=== PATIENT | female | born 1930 | race Caucasian/White ===

== ENCOUNTER → 2016-06-09 | Outpatient (CLI) | payer MEDICARE, BC ==
[~2016-06-09] MED LIST: ALDACTONE25 MG PO; BUMEX1 MG PO; CALCIUM 600 +1 EAC6 PO; COLACE100 MG PO; COZAAR25 MG PO; DOXYCYCLINE HY100 MG PO; ENTRESTO 24 MG1 EACH PO; FISH OIL 1,0001 EACH PO; HALDOL PO; HYOSCYAMINE0.125 M1; KEFLEX500 MG PO; KLOR-CON M2020 MEQ PO; LASIX40 MG PO; LEVOTHROID (SY25 MCG PO; MAG-OX-400(241400 MG PO; MAGOX 400400 MG PO; METOCLOPRAMIDE H5 MG PO; MORPHINE S20 MG/5 ML PO; MULTIVITAMINS1 EAC1 PO; MYCOSTATIN OINT30 GM TOP; NIACIN FLUSH F400 MG PO; NORCO 10-325 T1 EACH PO; OXYGEN M-15 INH; PRADAXA75 MG PO; PROLIA60 MG/ML SUB-Q; SOOTHE LUBRICA1 EACH OPHTH; TYLENOL EXTRA500 MG PO; TYLENOL/COD#31 TAB PO; ULTRAM50 MG PO; VERAPAMIL ER120 M1 PO; VITAMIN D1000 UNIT PO
== END | disposition disaster alternative care site (69) ==
LOC: GRAD 08:10
DX: C56.2 Malignant neoplasm of left ovary (principal); C78.2 Secondary malignant neoplasm of pleura; C78.7 Secondary malignant neoplasm of liver and intrahepatic bile duct; C78.6 Secondary malignant neoplasm of retroperitoneum and peritoneum; D64.81 Anemia due to antineoplastic chemotherapy; K76.89 Other specified diseases of liver; I70.90 Unspecified atherosclerosis; I51.7 Cardiomegaly; R14.0 Abdominal distension (gaseous); R35.0 Frequency of micturition; R91.8 Other nonspecific abnormal finding of lung field

== ENCOUNTER 2016-06-26 09:14 | Emergency (ER) | payer MEDICARE, BC ==
--- NOTE | ~2016-06-26 | ER ---
PATIENT'S NAME: VENITA CLARKMA Delvis [facility] AGE: 85 Y [address] ROOM: [place] [address] LOCATION: [facility] ADMIT DATE: 06/26/2016 ER/Outpatient Report DISCHARGE DATE: 06/26/2016 FAMILY PHYSICIAN: Eugenio Lemons MD ATTENDING PHYSICIAN: Gus Luna TIME OF ARRIVAL: 0925 hours. TIME OF EVALUATION: 0925 hours. CHIEF COMPLAINT: Rectal bleeding. HISTORY OF PRESENT ILLNESS: The patient is an 85-year-old female who presents to the emergency department today with a chief complaint of rectal bleeding. She reports this started 45 minutes prior to arrival. 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 She reports that she denies any fevers or chills. No urinary frequency or painful urination. She does report that she has issues with incomplete emptying. She feels like it times recently. Did have some diarrhea a few weeks ago, but none currently. Denies any nausea or vomiting. Denies any abdominal pain. Has 0/10 pain. PAST MEDICAL HISTORY: Congestive heart failure, chronic back pain, ovarian cancer with metastasis, coronary artery disease, atrial fibrillation, and hypertension. PAST SURGICAL HISTORY: Pacemaker, port placement, hip. SOCIAL HISTORY: The patient denies any tobacco, alcohol, or illicit drug use. ALLERGIES: TO PERCOCET WHICH MAKES HER CRAZY. MEDICATIONS: Please see list. PRIMARY CARE DOCTOR: Eugenio Lemons MD. HEM/ONC: [facility] 85 [facility] [address] ROOM: [place] [id number] LOCATION: ED ADMIT DATE: 06/26/2016 ER/Outpatient Report DISCHARGE DATE: 06/26/2016 FAMILY PHYSICIAN: Eugenio Lemons MD ATTENDING PHYSICIAN: Gus Luna MD. REVIEW OF SYSTEMS: All systems are reviewed by myself and are negative with the exception of those discussed in HPI and past medical history. PHYSICAL EXAMINATION: VITAL SIGNS: Weight 73.9 kg, blood pressure 127/66, pulse is 70, respiratory rate 18, temperature 98.2, oxygen saturation 97% on room air. GENERAL: The patient is an 85-year-old female, appears stated age, in no acute distress at this time. HEENT: Head normocephalic, atraumatic. Pupils are equal, round, and reactive to light. Conjunctivae are normal. NECK: Supple. There is no nuchal rigidity. CARDIOVASCULAR: Regular rate and rhythm. Positive murmur. No rubs or gallops. LUNGS: Clear to auscultation bilaterally. No wheezes, rales, or rhonchi. ABDOMEN: Soft, nontender, and nondistended. No rebound, rigidity, or guarding. Positive bowel sounds. MUSCULOSKELETAL: The patient ambulates in the room. Moves all 4 extremities. SKIN: Warm and dry. There are rashes or lesions noted. RECTAL: The patient's rectal exam is performed. She does have a mild amount of bright red blood. There is no active bleeding noted. LABS AND X-RAYS: Labs and x-rays are obtained. The CBC is normal. Lactate is 1.9. CMP is unremarkable except for BUN 25. LFTs normal. CK is normal. CK-MB is normal. Troponin is less than 0.04. ProBNP is 1108. Procalcitonin was less than 0.05. Occult blood is positive. Urinalysis shows 50 leuk esterase, full field wbc's, few bacteria, 15 protein, [address] scan of the abdomen and pelvis is obtained. I have discussed results with the radiologist. It shows a slightly more free fluid than 2 weeks ago. There is stable metastasis noted. There is diverticulum without evidence of diverticulitis. IMPRESSION: 1. Bright red blood per rectum. Rectal bleeding stable. 2. Ovarian cancer with metastasis including bowel involvement. 3. Initial visit. EMERGENCY DEPARTMENT COURSE: The patient brought back to the examination room. Seen and evaluated by myself. An IV is established. Laboratory analysis and imaging are obtained as described above. I have discussed results with the patient and family who is at the bedside. The patient reports she feels fine. I attempted to contact Dr. Lemons who is unavailable at this time. I have contacted . PATIENT'S NAME: JACINTO CLARK [facility] AGE: 85 Y [address] ROOM: [place] [address] LOCATION: [facility] ADMIT DATE: 06/26/2016 ER/Outpatient Report DISCHARGE DATE: 06/26/2016 FAMILY PHYSICIAN: Eugenio Lemons MD ATTENDING PHYSICIAN: Gus Luna who is on-call for Dr. Lemons and we have discussed the case. The patient would like to go home at this time. She has not had any chest pain, shortness of breath. No weakness, no lightheadedness. The bleeding is minimal at this time. I have discussed this with Dr. Rueda. We will plan for followup with Dr. eLmons tomorrow at 10:45, picking up a discussion about the potential colonoscopy for further evaluation, if the patient so chooses. I have discussed return to care instructions including worsening symptoms or any other concerns to return to the emergency department as soon as possible. The patient is agreeable. Family is agreeable. They are without further questions at this time. I was able to later talk with Dr. Lemons and discussed the case with him. He will see the patient tomorrow as scheduled. DISPOSITION: The patient discharged home in good condition. DO EARL FELIX/modl /[id number] d: 06/26/16 1707 t: 06/27/16 1024, OUTPATIENT REPORT
[~2016-06-26 09:14] MED LIST changes: -ALDACTONE25 MG PO; -BUMEX1 MG PO; -ENTRESTO 24 MG1 EACH PO; -HALDOL PO; -HYOSCYAMINE0.125 M1; -KEFLEX500 MG PO; -KLOR-CON M2020 MEQ PO; -MAG-OX-400(241400 MG PO; -MAGOX 400400 MG PO; -METOCLOPRAMIDE H5 MG PO; -MORPHINE S20 MG/5 ML PO; -MYCOSTATIN OINT30 GM TOP; -NORCO 10-325 T1 EACH PO; -OXYGEN M-15 INH; -PROLIA60 MG/ML SUB-Q; -ULTRAM50 MG PO
[2016-06-26 10:00] LABS: BASOPHIL # 0.1 K/uL (0.0-0.2); BASOPHIL % 1.3 %; EOSINOPHIL # 0.5 K/uL (0.0-0.5); EOSINOPHIL % 8.1 %; HEMATOCRIT 36.2 % (30.0-46.0); HEMOGLOBIN 12.1 g/dL (10.0-15.0); IMMATURE GRANULOCYTE % 0.3 %; LYMPHOCYTE # 1.3 K/uL (0.8-4.0); LYMPHOCYTE % 20.4 %; MCH 31.3 pg (27.0-34.0); MCHC 33.4 gm/dL (32.0-36.5); MCV 93.8 fl (83.0-98.0); MONOCYTE # 0.6 K/uL (0.0-1.0); MONOCYTE % 9.6 %; MPV 9.7 fl (9.4-12.4); NEUTROPHIL # (ANC) 3.7 K/uL (1.8-7.8); NEUTROPHIL % 60.3 %; NRBC % 0 /100WBC (0-0.00); PLATELET COUNT 250 K/uL (150-450); RBC 3.86 M/uL (3.00-5.00); RDW-CV 13.9 % (11.9-14.6); WBC 6.2 K/uL (4.0-11.0)
[2016-06-26 10:26] LABS: ALBUMIN 3.3 gm/dL (3.5-5.0); ALK PHOS 89 IU/L (33-138); ALT 18 IU/L (12-78); ANION GAP 14.4 (10.0-19.0); AST 35 IU/L (10-40); BLOOD UREA NITROGEN 25 mg/dL (6-24); CALCIUM 8.9 mg/dL (8.5-10.5); CHLORIDE 101 mMol/L (96-110); CO2 27 mMol/L (22-32); CPK 94 IU/L (21-215); CREATININE 0.9 mg/dL (0.5-1.1); ESTIMATED GFR (MDRD EQUATION) 59; POTASSIUM 4.4 mMol/L (3.7-5.1); SODIUM 138 mMol/L (135-145); TOTAL BILIRUBIN 0.5 mg/dL (0.0-1.5)
[2016-06-26 11:20] LABS: BILIRUBIN URINE NEGATIVE (NEGATIVE); BLOOD URINE 10 /UL (NEGATIVE); COLOR URINE YELLOW (YELLOW); GLUCOSE URINE NEGATIVE (NEGATIVE); KETONE URINE NEGATIVE (NEGATIVE); LEUKOCYTES URINE 500 /UL (NEGATIVE); NITRITE URINE NEGATIVE (NEGATIVE); PROTEIN URINE 15 mg/dL (NEGATIVE); SPEC GRAVITY URINE 1.015 (1.003-1.035); TURBIDITY URINE 1+ (CLEAR); UROBILINOGEN URINE NORMAL (NORMAL)
[2016-06-26 11:25] LABS: AMORPHOUS URINE 1+ (NEGATIVE); BACTERIA URINE FEW (NEGATIVE); MUCUS URINE 1+ (NEGATIVE); WBC URINE FULL FIELD #/HPF (NEGATIVE)
[2016-06-27] MEDS ORDERED: KLOR-CON M2020 MEQ PO (13:54)
[2016-06-27] MEDS ORDERED: MAGOX 400400 MG PO (13:55)
[2016-06-27] MEDS ORDERED: ENTRESTO 24 MG1 EACH PO (13:57)
[2016-06-27] MEDS ORDERED: PROLIA60 MG/ML SUB-Q (13:58)
[2016-06-27] MEDS ORDERED: OXYGEN M-15 INH (14:01)
[2016-09-03] MEDS ORDERED: PRADAXA75 MG PO (13:25)
[2016-09-03] MEDS ORDERED: METOCLOPRAMIDE H5 MG PO (13:26)
[2016-09-03] MEDS ORDERED: ALDACTONE25 MG PO (13:26)
[2016-09-03] MEDS ORDERED: LEVOTHROID (SY25 MCG PO (13:27)
[2016-09-03] MEDS ORDERED: MAG-OX-400(241400 MG PO (13:28)
[2016-09-03] MEDS ORDERED: ULTRAM50 MG PO (13:32)
[2016-09-03] MEDS ORDERED: FISH OIL 1,0001 EACH PO (13:41)
[2016-09-09] MEDS ORDERED: COLACE100 MG PO (14:12)
[2016-11-26] MEDS ORDERED: BUMEX1 MG PO (12:45)
[2016-11-26] MEDS ORDERED: ENTRESTO 24 MG1 EACH PO (12:46)
[2016-11-26] MEDS ORDERED: HALDOL PO (12:47)
[2016-11-26] MEDS ORDERED: HYOSCYAMINE0.125 M1 (12:48)
[2016-11-26] MEDS ORDERED: KEFLEX500 MG PO (12:49)
[2016-11-26] MEDS ORDERED: NORCO 10-325 T1 EACH PO (12:50)
[2016-11-26] MEDS ORDERED: MORPHINE S20 MG/5 ML PO (12:50)
[2016-11-26] MEDS ORDERED: MYCOSTATIN OINT30 GM TOP (12:51)
[2016-11-26] MEDS ORDERED: OXYGEN M-15 INH (12:52)
== END 2016-06-26 12:58 | disposition disaster alternative care site (69) ==
LOC: GMED 09:14
PROVIDERS: Emergency Medicine
DX: K62.5 Hemorrhage of anus and rectum (principal); C78.80 Secondary malignant neoplasm of unspecified digestive organ; C56.9 Malignant neoplasm of unspecified ovary; I11.0 Hypertensive heart disease with heart failure; I50.9 Heart failure, unspecified; I25.10 Atherosclerotic heart disease of native coronary artery without angina pectoris; I48.91 Unspecified atrial fibrillation; Z88.5 Allergy status to narcotic agent; Z79.899 Other long term (current) drug therapy
CPT/HCPCS: Q9967

== ENCOUNTER → 2016-06-30 | Day surgery (SDC) | payer MEDICARE, BC ==
[~2016-06-30] VITALS: Ht 156.2 cm; Wt 72.6 kg
[~2016-06-30] MED LIST changes: +ALDACTONE25 MG PO; +BUMEX1 MG PO; +ENTRESTO 24 MG1 EACH PO; +HALDOL PO; +HYOSCYAMINE0.125 M1; +KEFLEX500 MG PO; +KLOR-CON M2020 MEQ PO; +MAG-OX-400(241400 MG PO; +MAGOX 400400 MG PO; +METOCLOPRAMIDE H5 MG PO; +MORPHINE S20 MG/5 ML PO; +MYCOSTATIN OINT30 GM TOP; +NORCO 10-325 T1 EACH PO; +OXYGEN M-15 INH; +PROLIA60 MG/ML SUB-Q; +ULTRAM50 MG PO
== END | disposition disaster alternative care site (69) ==
LOC: GPOC 06-27 15:00 → GEND 09:46 → GPOC 10:00
PROC: 0DBN8ZX Excision of Sigmoid Colon, Via Natural or Artificial Opening Endoscopic, Diagnostic (ICD-10-PCS; principal; 2016-06-30)
DX: K57.30 Diverticulosis of large intestine without perforation or abscess without bleeding (principal); K64.8 Other hemorrhoids; I11.0 Hypertensive heart disease with heart failure; I50.9 Heart failure, unspecified; I48.1 Persistent atrial fibrillation; J20.9 Acute bronchitis, unspecified; E03.9 Hypothyroidism, unspecified; I07.1 Rheumatic tricuspid insufficiency; E87.6 Hypokalemia; E87.1 Hypo-osmolality and hyponatremia; Z88.8 Allergy status to other drugs, medicaments and biological substances; Z98.49 Cataract extraction status, unspecified eye; Z98.890 Other specified postprocedural states; Z79.899 Other long term (current) drug therapy
CPT/HCPCS: J2001; J7030

== ENCOUNTER → 2016-09-05 | Outpatient (CLI) | payer MEDICARE, BC | LOC: GOPD 09-03 | DX: C56.2 Malignant neoplasm of left ovary (principal); C78.6 Secondary malignant neoplasm of retroperitoneum and peritoneum; E78.00 Pure hypercholesterolemia, unspecified; I25.10 Atherosclerotic heart disease of native coronary artery without angina pectoris; I25.5 Ischemic cardiomyopathy ==

== ENCOUNTER → 2016-09-10 | Outpatient (CLI) | payer MEDICARE, BC | END | disposition disaster alternative care site (69) | LOC: GOPP 12:19 | PROC: 0WH Anatomical Regions, General, Insertion (ICD-10-PCS; principal; 2016-09-10) | DX: Z46.82 Encounter for fitting and adjustment of non-vascular catheter (principal); I50.9 Heart failure, unspecified; C56.2 Malignant neoplasm of left ovary; C78.2 Secondary malignant neoplasm of pleura; R35.0 Frequency of micturition; D64.81 Anemia due to antineoplastic chemotherapy | CPT/HCPCS: J0690; J2001; J2250; J3010; J7030; J7120 ==